=== PATIENT | male | born 1970 | race Caucasian/White ===

== ENCOUNTER 2020-05-26 12:15 | Emergency (ER) | payer MEDICAID ==
[~2020-05-26] VITALS: Ht 172.7 cm; Wt 63.5 kg
[2020-05-26 12:35] VITALS: BP 113/66
[2020-05-26] MEDS ORDERED: Sodium Chloride 1,900 ML IVLG STA (12:42)
[2020-05-26] MEDS ORDERED: cefTRIAXone 1 GM in NS 55 ML IV ONE (12:45)
[2020-05-26] MEDS ORDERED: Azithromycin 500 MG in NS 275 ML IVPB ONE (12:45)
[2020-05-26] MEDS ORDERED: Acetaminophen 500mg (ES) tab ORAL ONE (12:45)
--- NOTE | 2020-05-26 12:45 | NUR ---
ED Nurse Note: Pt ambulated to ED from home d/t shortness of breath, gen. weakness, cough and diarrhea that has been going on since thursday; sob started since yesterday. Pt is A&Ox4, calm and cooperative, appears to be diaphoretic. Pt was placed on bed and gown; hooked to youth nutritional monitor, satting at 89% on RA; placed on 3L via NC satting at 97%; ERMD notified.
--- NOTE | 2020-05-26 12:54 | Emergency Room Report ---
History of Present Illness General Chief Complaint: Dyspnea/Respdistress Source: Patient (Manny Perez MD) Present Illness HPI Patient started to feel ill on Thursday. He was having headaches and dyspnea on exertion. He also has a cough. He had stopped smoking cigarettes and changed over to vape a few months ago. Is ahov-lhs-rosjgli product. He stopped smoking a week ago. He has progressively gotten worse with more dyspnea on exertion chills nausea and body aches. The phlegm was brownish color and now is turned more pink. He is paranoid about being exposed to COVID-19 and therefore is socially isolated. He tested negative for COVID-19 on Thursday today is Thursday. He has been having right-sided chest pain that has grown in intensity. He denies any vomiting or dysuria. He has been drinking increased fluids and therefore urinating more frequently. The patient also complains about diarrhea. It is brown in color. There is no blood. No sore throat, palpitations, abdominal pain, joint pain, rashes, depression, anxiety, visual changes, dizziness, headache. 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 Reviewed Nursing Documentation: PMH: Agreed; PSxH: Agreed (Manny Perez MD) Nursing Documentation-PMH Past Medical History: No Stated History (Manny Perez MD) Review of Systems All Other Systems: negative except mentioned in HPI (Manny Perez MD) Physical Exam Vital Signs Date Time Temp Pulse Resp B/P (MAP) Pulse Ox O2 Delivery O2 Flow Rate FiO2 05/26/20 12:20 97.5 122 17 113/66 (82) 89 Room Air Sp02 EP Interpretation: reviewed, abnormal - Interpreted as low by me General Appearance: GCS 15, other - Diaphoretic and easily out of breath walking to room Eyes: bilateral eye normal inspection, bilateral eye PERRL, bilateral eye EOMI ENT: other - Wearing a mask Neck: full range of motion, supple, no meningismus Respiratory: no respiratory distress - But easily winded, rales - Right base Cardiovascular #1: regular rate, rhythm Cardiovascular #2: 2+ radial (R) Gastrointestinal: normal bowel sounds, non tender Musculoskeletal: back normal, no calf tenderness Neurologic: alert, oriented x3, grossly normal Psychiatric: mood/affect normal Skin: no rash, warm/dry (Manny Perez MD) Medical Decision Making Diagnostic Impression: Primary Impression: Right upper lobe pneumonia Qualified Codes: B59 - Pneumocystosis Additional Impressions: Hypoxia Hypokalemia Renal insufficiency COVID-19 ruled out by laboratory testing ER Course Patient presents with hypoxia cough. Differential includes bacterial pneumonia, COVID-19, pulmonary embolus, acute myocardial infarction amongst others. Based on his history COVID-19 it may be less likely however extremely common for c ausing hypoxia and fever and the patient population at this time. The patient will be tested for COVID-19. In addition his evaluation will be with EKG, chest x-ray and labs. Patient will be treated with Tylenol, IV hydration and early administration of antibiotics. Patient is placed on a school bus monitor and oxygen is begun. EKG left atrial enlargement no injury. Chest x-ray dense right upper lobe infiltrate, nodule, possible adenopathy. White count elevated. COVID-19 negative. Low potassium, renal insufficiency. Mild pyuria. Potassium administered. Patient clinically somewhat improved after IV fluids and antibiotics. Discussed the need for hospitalization and further evaluation with CT scan. Patient signed out to Dr. Ibrahim. Laboratory Tests Test 05/26/20 12:55 05/26/20 12:57 White Blood Count 16.4 K/UL (4.8-10.8) H Red Blood Count 4.46 M/UL (4.70-6.10) L Hemoglobin 13.4 G/DL (14.2-18.0) L Hematocrit 37.8 % (42.0-52.0) L Mean Corpuscular Volume 85 FL (80-99) Mean Corpuscular Hemoglobin 29.9 PG (27.0-31.0) Mean Corpuscular Hemoglobin Concent 35.4 G/DL (32.0-36.0) Red Cell Distribution Width 12.9 % (11.6-14.8) Platelet Count 210 K/UL (150-450) Mean Platelet Volume 8.0 FL (6.5-10.1) Neutrophils (%) (Auto) 81.4 % (45.0-75.0) H Lymphocytes (%) (Auto) 5.8 % (20.0-45.0) L Monocytes (%) (Auto) 9.1 % (1.0-10.0) Eosinophils (%) (Auto) 0.1 % (0.0-3.0) Basophils (%) (Auto) 3.6 % (0.0-2.0) H Prothrombin Time 12.5 SEC (9.30-11.50) H Prothrombin Time INR 1.1 (0.9-1.1) Activated Partial Thromboplast Time 32 SEC (23-33) D-Dimer Pending Sodium Level 133 MMOL/L (136-145) L Potassium Level 2.6 MMOL/L (3.5-5.1) *L Chloride Level 96 MMOL/L (98-107) L Carbon Dioxide Level 23 MMOL/L (21-32) Anion Gap 16 mmol/L (5-15) H Blood Urea Nitrogen 25 mg/dL (7-18) H Creatinine 1.5 MG/DL (0.55-1.30) H Estimated Glomerular Filtration Rate 49.3 mL/min (>60) Glucose Level 108 MG/DL (74-106) H Lactic Acid Level 1.90 mmol/L (0.4-2.0) Calcium Level 8.6 MG/DL (8.5-10.1) Magnesium Level 2.2 MG/DL (1.8-2.4) Ferritin Pending Total Bilirubin 4.4 MG/DL (0.2-1.0) H Direct Bilirubin 2.4 MG/DL (0.0-0.3) H Aspartate Amino Transferase (AST) 31 U/L (15-37) Alanine Aminotransferase (ALT) 28 U/L (12-78) Alkaline Phosphatase 84 U/L (46-116) Lactate Dehydrogenase 200 U/L (81-234) Total Creatine Kinase 220 U/L (26-308) Creatine Kinase MB 0.6 NG/ML (0.0-3.6) Creatine Kinase MB Relative Index 0.2 Troponin I 0.000 ng/mL (0.000-0.056) C-Reactive Protein, Quantitative Pending Pro-B-Type Natriuretic Peptide 247 pg/mL (0-125) H Total Protein 6.9 G/DL (6.4-8.2) Albumin 2.6 G/DL (3.4-5.0) L Globulin 4.3 g/dL Albumin/Globulin Ratio 0.6 (1.0-2.7) L Lipase 88 U/L (73-393) Venous Blood pH 7.431 Venous Blood Partial Pressure CO2 31.7 Venous Blood Partial Pressure O2 41.6 Venous Blood HCO3 20.6 Venous Blood Total Carbon Dioxide 31.7 Venous Blood Base Excess -2.6 Venous Blood Carboxyhemoglobin 1.2 % (0.5-1.5) Methemoglobin 0.4 Microbiology Date/Time Source Procedure Growth Status 05/26/20 12:55 Nasopharynx SARS-CoV-2 RdRp Gene Assay - Final Complete (Manny Perez MD) ER Course Patient was endorsed to me by Dr. Perez. Patient presented for increased shortness of breath with productive cough. Chest x-ray showed pneumonia. Patient's case was endorsed to Dr. Hutchinson to and [facility] Labs Test 05/26/20 12:55 05/26/20 12:57 White Blood Count 16.4 K/UL (4.8-10.8) Red Blood Count 4.46 M/UL (4.70-6.10) Hemoglobin 13.4 G/DL (14.2-18.0) Hematocrit 37.8 % (42.0-52.0) Mean Corpuscular Volume 85 FL (80-99) Mean Corpuscular Hemoglobin 29.9 PG (27.0-31.0) Mean Corpuscular Hemoglobin Concent 35.4 G/DL (32.0-36.0) Red Cell Distribution Width 12.9 % (11.6-14.8) Platelet Count 210 K/UL (150-450) Mean Platelet Volume 8.0 FL (6.5-10.1) Neutrophils (%) (Auto) 81.4 % (45.0-75.0) Lymphocytes (%) (Auto) 5.8 % (20.0-45.0) Monocytes (%) (Auto) 9.1 % (1.0-10.0) Eosinophils (%) (Auto) 0.1 % (0.0-3.0) Basophils (%) (Auto) 3.6 % (0.0-2.0) Prothrombin Time 12.5 SEC (9.30-11.50) Prothromb Time International Ratio 1.1 (0.9-1.1) Activated Partial Thromboplast Time 32 SEC (23-33) Sodium Level 133 MMOL/L (136-145) Potassium Level 2.6 MMOL/L (3.5-5.1) Chloride Level 96 MMOL/L (98-107) Carbon Dioxide Level 23 MMOL/L (21-32) Anion Gap 16 mmol/L (5-15) Blood Urea Nitrogen 25 mg/dL (7-18) Creatinine 1.5 MG/DL (0.55-1.30) Estimat Glomerular Filtration Rate 49.3 mL/min (>60) Glucose Level 108 MG/DL (74-106) Lactic Acid Level 1.90 mmol/L (0.4-2.0) Calcium Level 8.6 MG/DL (8.5-10.1) Magnesium Level 2.2 MG/DL (1.8-2.4) Ferritin 1558 NG/ML (8-388) Total Bilirubin 4.4 MG/DL (0.2-1.0) Direct Bilirubin 2.4 MG/DL (0.0-0.3) Aspartate Amino Transf (AST/SGOT) 31 U/L (15-37) Alanine Aminotransferase (ALT/SGPT) 28 U/L (12-78) Alkaline Phosphatase 84 U/L (46-116) Lactate Dehydrogenase 200 U/L (81-234) Total Creatine Kinase 220 U/L (26-308) Creatine Kinase MB 0.6 NG/ML (0.0-3.6) Creatine Kinase MB Relative Index 0.2 Troponin I 0.000 ng/mL (0.000-0.056) C-Reactive Protein, Quantitative 34.5 mg/dL (0.00-0.90) Pro-B-Type Natriuretic Peptide 247 pg/mL (0-125) Total Protein 6.9 G/DL (6.4-8.2) Albumin 2.6 G/DL (3.4-5.0) Globulin 4.3 g/dL Albumin/Globulin Ratio 0.6 (1.0-2.7) Lipase 88 U/L (73-393) Venous Blood pH 7.431 Venous Blood Partial Pressure CO2 31.7 Venous Blood Partial Pressure O2 41.6 Venous Blood HCO3 20.6 Venous Blood Total Carbon Dioxide 31.7 Venous Blood Base Excess -2.6 Venous Blood Carboxyhemoglobin 1.2 % (0.5-1.5) Methemoglobin 0.4 (Lam Ibrahim MD) EKG Diagnostic Results Rate: normal Rhythm: NSR ST Segments: no acute changes - Left atrial enlargement (Manny Perez MD) Rhythm Strip Diag. Results EP Interpretation: yes Rhythm: NSR, no PVC's, no ectopy (Manny Perez MD) Chest X-Ray Diagnostic Results Chest X-Ray Diagnostic Results : Chest X-Ray Ordered: Yes # of Views/Limited/Complete: 1 View Indication: Other EP Interpretation: Yes Interpretation: no effusion, no pneumothorax, other - Nodule, dense infiltrate and possible increased adenopathy Impression: Other Electronically Signed by: Electronically signed by Manny Perez MD (Manny Perez MD) Last Vital Signs Date Time Temp Pulse Resp B/P (MAP) Pulse Ox O2 Delivery O2 Flow Rate FiO2 05/26/20 16:57 97.9 68 15 108/72 96 Room Air 05/26/20 15:06 2.0 Status: improved (Manny Perez MD) Status: improved (Lam Ibrahim MD) Disposition: SHORT-TERM HOSP Condition: Serious Manny Perez MD May 26, 2020 12:54 Lam Ibrahim MD May 26, 2020 14:56
--- NOTE | 2020-05-26 13:00 | NUR ---
ED Nurse Note: VBG sample handed to RT; rapid covid, blood with cultures sent to lab.
[2020-05-26 13:15] LABS: BASOPHILS % (AUTO) 3.6 % (0.0-2.0); EOSINOPHILS % (AUTO) 0.1 % (0.0-3.0); HEMATOCRIT 37.8 % (42.0-52.0); HEMOGLOBIN 13.4 G/DL (14.2-18.0); LYMPHOCYTES % (AUTO) 5.8 % (20.0-45.0); MEAN CORPUSCULAR VOLUME 85 FL (80-99); MONOCYTES % (AUTO) 9.1 % (1.0-10.0); NEUTROPHILS % (AUTO) 81.4 % (45.0-75.0); PLATELET COUNT 210 K/UL (150-450); RED BLOOD COUNT 4.46 M/UL (4.70-6.10); RED CELL DISTRIBUTION WIDTH 12.9 % (11.6-14.8); WHITE BLOOD COUNT 16.4 K/UL (4.8-10.8)
[2020-05-26 13:19] LABS: INR 1.1 (0.9-1.1)
--- NOTE | 2020-05-26 13:47 | Diagnostic Imaging Report ---
EXAM: XR Chest, 1 View CLINICAL HISTORY: DYSPNEA TECHNIQUE: Frontal view of the chest. COMPARISON: None FINDINGS: Hardware: None. Lungs/pleura: Patchy consolidations in the right lung, most prominently in the right upper lobe. Mild left basilar atelectasis. No pleural effusion or pneumothorax. Heart/mediastinum: Normal. No cardiomegaly. Soft tissues: Unremarkable. Bones: No acute fracture. Degenerative changes of the acromioclavicular joints. Upper abdomen: Normal. IMPRESSION: Patchy consolidations in the right lung, most prominently in the right upper lobe, concerning for pneumonia.
[2020-05-26 13:52] LABS: ALBUMIN 2.6 G/DL (3.4-5.0); ALBUMIN/GLOBULIN RATIO 0.6 (1.0-2.7); BILIRUBIN,TOTAL 4.4 MG/DL (0.2-1.0); CALCIUM 8.6 MG/DL (8.5-10.1); CKMB 0.6 NG/ML (0.0-3.6); CREATININE 1.5 MG/DL (0.55-1.30)
[2020-05-26 13:54] LABS: POTASSIUM 2.6 MMOL/L (3.5-5.1)
[2020-05-26 14:03] LABS: BILIRUBIN,DIRECT 2.4 MG/DL (0.0-0.3)
--- NOTE | 2020-05-26 14:12 | NUR ---
ED Nurse Note: Patient still unable to provide urine sample at this time. Bed side commode provided.
--- NOTE | 2020-05-26 15:00 | NUR ---
ED Nurse Note: Patient had bowel movement in large amounts. RN changed old bed sheet and place new gown on patient.
[2020-05-26 15:06] VITALS: BP 109/71
[2020-05-26 15:13] LABS: APPEARANCE,URINE SLIGHTLY CLOUDY; BILIRUBIN, URINE 1+ (NEGATIVE); GLUCOSE, URINE (UA) NEGATIVE (NEGATIVE); KETONES,URINE 1+ (NEGATIVE); LEUKOCYTE ESTERASE ,URINE 1+ (NEGATIVE); NITRITE,URINE NEGATIVE (NEGATIVE); PH,URINE 6 (4.5-8.0); PROTEIN,URINE 2+ (NEGATIVE); UROBILINOGEN,URINE 8 MG/DL (0.0-1.0)
[2020-05-26 15:28] LABS: COLOR,URINE YELLOW
[2020-05-26 16:57] VITALS: BP 108/72
--- NOTE | 2020-05-26 18:36 | NUR ---
ED Nurse Note: Report given to Enoch TRACY of [facility].
[2020-05-26] MEDS ORDERED: CEPHALEXIN500 MG ORAL (19:08)
[2020-05-26] MEDS ORDERED: ZITHROMAX250 MG ORAL (19:08)
--- NOTE | 2020-05-26 19:13 | NUR ---
HAND-OFF: Report given to Emily TRACY.
[2020-05-26 19:20] VITALS: BP 108/72
--- NOTE | 2020-05-26 19:20 | NUR ---
AMA: SEE AMA FORM. Patient verbalized understanding of potentials of decision to leave. ID band removed, IV removed without complication. Patient is ambulatory with steady gait, A&Ox4, and seemingly in stable condition. Patient signed AMA form along with discharge documenation. Patient rendered prescriptions for PO antibiotics as well. Patient departed with all belongings.
--- NOTE | 2020-05-29 17:09 | Cardiology Report ---
APPROVED REPORT EKG Measurement Heart [id number] <Conclusion> Normal sinus rhythm Possible Left atrial enlargement Borderline ECG
== END 2020-05-26 19:20 | disposition short-term general hospital (02) ==
LOC: EDBEDREQ 12:49 → EMR 13:13
DX: B59 Pneumocystosis (principal); R09.02 Hypoxemia; E87.6 Hypokalemia; N28.9 Disorder of kidney and ureter, unspecified; Z87.891 Personal history of nicotine dependence
CPT/HCPCS: 36415; 71045; 80053; 81003; 82248; 82550; 82553; 82728; 82803; 83605; 83615; 83690; 83735; 83880; 84484; 85025; 85379; 85610; 85730; 86140; 87040; 93005; 96361; 96365; 96367; J0456; J0696; J7030; J7050; U0002; Z7502; 99285; J8499